=== PATIENT | female | born 1990 | race African-American/Black ===

== ENCOUNTER 2016-08-08 11:40 | Emergency (ER) | payer SELFPAY ==
--- NOTE | ~2016-08-08 | EKG ---
PATIENT: ANTONIO SHELLEY UNIT #: [id number] Ventricular Rate: 78 BPM Atrial Rate: 78 BPM P-R Interval: 188 ms QRS Duration: 84 ms Q-T Interval: 384 ms QTC Calculation(Bezet): 437 ms P [place]: 55 degrees Calculated R [place]: 47 degrees Calculated T [place]: 33 degrees Diagnosis Line: Normal sinus rhythm Diagnosis Line: Normal ECG Diagnosis Line: When compared with ECG of 29-MAR-2016 17:28, Diagnosis Line: No significant change was found Diagnosis Line: Confirmed by JODY MORGAN MD ([id number]) on 08/09/2016 Diagnosis Line: 8:18:41 PM INTERPRETING MD: CATHY BLACKMON
--- NOTE | ~2016-08-08 | CR72 ---
[facility] A Service of [facility] RADIOLOGY TEXT RESULTS PATIENT: ANTONIO SHELLEY LOCATION: [facility] : 88 UNIT #: [id number] AGE: [address]: Napoleon Davenport MD SEX: F ORDER DR: [id number] [facility] [address] [place], [place] [address] [id number] MR#: [id number] Acc #: [id number] NAME: ANTONIO SHELLEY : 1990 SEX: F STUDY DATE/TIME: 08/08/2016 13:35 UNIT: [facility] ROOM: STUDY DESCRIPTION: CR Chest Single View Portable Ordering Physician: [facility] MEDICAL IMAGING REPORT This report is preliminary unless electronic signature is present EXAM Portable chest 08/08/2016 HISTORY 25-year-old woman, left-sided chest pains. Short of air. Symptoms today. COMPARISON STUDIES Chest 03/29/2016. FINDINGS AP upright portable chest demonstrates normal cardiac size and configuration. Hilar structures and mediastinal contours are normal. Bilateral lungs are expanded and clear. IMPRESSION Negative and stable chest. Dictated by... Munir Ryan M.D. THIS IS AN ELECTRONICALLY VERIFIED REPORT Munir Ryan M.D. at 08/08/2016 3:55 PM SAMUEL/hernando TD: 08/08/2016 15:22 JOB #: [id number] MEDICAL IMAGING REPORT Page 1 of 1 COPY
[~2016-08-08 11:40] MED LIST: ALBUTEROL17 GM INH; AMOXICILLIN PO; BACTRIM DS TABL1 TAB PO; BENADRYL25 MG PO; DOXYCYCLINE HY100 M3 PO; FIORICET 50-321 EACH PO; IBUPROFEN PO; LORTAB 5/500 TA1 TA1 PO; MEDROL PO; NO MEDICATIONS; PHENERGAN PO; PRENATAL1 TA1 PO; VICODIN 5/500 T1 TAB PO; VOLTAREN75 MG PO
[2016-08-08 13:36] LABS: BASOPHIL% 0.2 % (0-2.5); EOSINOPHIL% 0.7 % (0.0-7.0); HEMATOCRIT 30.9 % (35.0-45.0); HEMOGLOBIN 9.5 gm/dL (12.0-16.0); LYMPHOCYTE# 2.5 X10e3 (1.0-3.5); LYMPHOCYTE% 39.9 % (17.0-45.0); MEAN CELL VOLUME 68.7 FL (83-96); MEAN CORPUSCULAR HEMOGLOBIN 21.2 PG (28-34); MEAN CORPUSCULAR HGB CONC 30.8 g/dL (30-36); MEAN PLATELET VOLUME 8.9 FL (6.5-11.5); MONOCYTE# 0.4 X10e3 (0-1.0); MONOCYTE% 7.2 % (3.0-12.0); NEUTROPHIL# 3.2 X10e3 (1.5-7.1); PLATELET COUNT 277 X10e3 (140-420); RED BLOOD COUNT 4.51 X10e (3.90-5.30); WHITE BLOOD COUNT 6.2 X10e3 (4.0-10.5)
[2016-08-08 13:41] LABS: DIFF IND NO
[2016-08-08 14:00] LABS: ALBUMIN SERUM 3.5 g/dL (3.5-5.0); ALKALINE PHOSPHATASE 69 U/L (32-92); ALT (SGPT) 16 U/L (10-40); AST (SGOT) 16 U/L (10-42); BILIRUBIN, DIRECT <0.1 mg/dL (0.0-0.2); BILIRUBIN,INDIRECT 0.3 mg/dL (0.0-0.9); BILIRUBIN,TOTAL 0.4 mg/dL (0.2-2.0); BLOOD UREA NITROGEN 9 mg/dL (9-23); CALCIUM SERUM 8.7 mg/dL (8.4-10.2); CARBON DIOXIDE 27 mmol/L (22-31); CHLORIDE 105 mmol/L (100-111); CREATININE SERUM 0.6 mg/dL (0.6-1.4); GLOM FILT RATE Estimated 145.8 mL/min (>60); GLUCOSE FASTING 110 mg/dL (70-110); POTASSIUM 3.7 mmol/L (3.5-5.1); PROTEIN TOTAL SERUM 7.5 g/dL (6.0-8.3); SODIUM 134 mmol/L (135-145)
[2016-08-08 15:04] LABS: POC - CKMB <1.0 ng/mL (0.0-7.9); POC - TROPONIN <0.05 ng/mL (<=0.05)
[2016-08-08 15:31] LABS: POC - CKMB <1.0 ng/mL (0.0-7.9); POC - TROPONIN <0.05 ng/mL (<=0.05)
== END 2016-08-08 17:25 | disposition home or self-care (01) ==
LOC: CED 11:40
PROVIDERS: Emergency Medicine
DX: R07.89 Other chest pain (principal); D64.9 Anemia, unspecified
CPT/HCPCS: 36415; 71010; 80048; 80076; 82553; 84484; 84703; 85025; 85379; 93005; 96374; 99285; J1885